=== PATIENT | female | born 1970 | race Two or more races ===

== ENCOUNTER 2021-03-08 13:57 | Emergency (ER) | payer BC ==
[~2021-03-08] VITALS: Ht 160 cm; Wt 84.5 kg
[2021-03-08 14:04] VITALS: BP 173/114
--- NOTE | 2021-03-08 14:51 | NUR ---
Patient/Caregiver given discharge instructions and they have confirmed that they understand the instructions. Patient ambulatory with steady gait.
== END 2021-03-08 15:03 | disposition home or self-care (01) ==
LOC: ED 15:01
DX: S16.1XXA Strain of muscle, fascia and tendon at neck level, initial encounter (principal); M54.6 Pain in thoracic spine; V59.49XA Driver of pick-up truck or van injured in collision with other motor vehicles in traffic accident, initial encounter; Y93.89 Activity, other specified; Y92.410 Unspecified street and highway as the place of occurrence of the external cause; Y99.8 Other external cause status
CPT/HCPCS: 99283